=== PATIENT | male | born 1940 | race Caucasian/White ===

== ENCOUNTER 2020-11-05 10:28 | Outpatient (CLI) | END 2020-11-05 10:29 | disposition home or self-care (01) | LOC: LAB.R 10:28 | PROVIDERS: ATTEND Internal Medicine | DX: R19.7 Diarrhea, unspecified (principal); R11.0 Nausea; R10.9 Unspecified abdominal pain; R63.4 Abnormal weight loss | CPT/HCPCS: 81599; 87045; 87046; 87427; 87493 ==

== ENCOUNTER 2023-01-11 19:35 | Emergency (ER) | payer MEDICARE, OTHER ==
[2023-01-11] MEDS ORDERED: ASPIRIN CHEW 81 MG TABLET PO STA (19:59)
--- NOTE | 2023-01-11 20:00 | ED Physician Documentation ---
History of Present Illness - Stated complaint Stated Complaint: ABNORMAL BLOODWORK - Chief complaint Chief Complaint: General - History obtained from History obtained from: Patient - Additonal information Additional information: 82-year-old gentleman with no history of cardiac disease, did have a negative stress test couple of years ago. On and off for the last week he has had intermittent chest pain particularly bad with about several hours of on and off chest pressure last night. He has been pain-free all day but went to his doctor's office today where they performed a troponin test and was reportedly 30 and he was advised to come here. PD PAST MEDICAL HISTORY - Past Medical History Cardiovascular: Hypertension, High cholesterol GI: GERD Derm: Other - Past Surgical History Past Surgical History: Yes General: Other Ortho: Knee replacement, Arthroscopic surgery Derm: Skin cancer surgery - Present Medications Home Medications: Ambulatory Orders Medication Instructions Recorded Confirmed Aspirin 325 mg PO DAILY 07/11/15 08/22/15 Carvedilol 6.25 mg PO DAILY 07/11/15 08/22/15 Esomeprazole [NexIUM] 40 mg PO DAILY 07/11/15 08/22/15 Finasteride [Proscar] 5 mg PO DAILY 07/11/15 08/22/15 Losartan [Cozaar] 100 mg PO DAILY 07/11/15 08/22/15 Simvastatin 40 mg PO DAILY 07/11/15 08/22/15 Terazosin [Hytrin] 10 mg PO BID 07/11/15 08/22/15 clonazePAM [Clonazepam] 1 mg PO ONCE 07/11/15 08/22/15 hydroCHLOROthiazide 25 mg PO DAILY 07/11/15 08/22/15 [Hydrochlorothiazide] HYDROmorphone [Dilaudid] 2 mg PO Q4H PRN #10 tablet 08/22/15 - Allergies Allergies/Adverse Reactions: Allergies Allergy/AdvReac Type Severity Reaction Status Date / Time oxycodone Allergy Rash Verified 01/11/23 19:45 - Social History Does the pt smoke?: No Smoking Status: Never smoker Does the pt drink ETOH?: No Does the pt have substance abuse?: No - Immunizations Immunizations are current?: Yes PD ED PE NORMAL - Vitals Vital signs reviewed: Yes - General General: Alert and oriented X 3, No acute distress - Neck Neck: Supple, no meningeal sign, No bony TTP - Cardiac Cardiac: RRR, No murmur - Respiratory Respiratory: No respiratory distress, Clear bilaterally - Abdomen Abdomen: Non tender - Extremities Extremities: No edema, No calf tenderness / cord - Neuro Neuro: Alert and oriented X 3, Normal speech Results - Vitals Vitals: Vital Signs - 24 hr 01/11/23 01/11/23 19:45 20:38 Temperature 36.5 C Heart Rate 69 62 Respiratory 16 16 Rate Blood Pressure 160/100 H 136/77 H O2 Saturation 94 93 Oxygen O2 Source Room air - EKG (time done) 2004 EKG releavant findings:: EKG personally interpreted by author of this note. Relevant findings are: Rate: Rate (enter#) (66) Rhythm: NSR [place]: LAD Intervals: Prolonged [place] Ischemia: Q waves (Anterior and inferior Q waves). No: ST elevation c/w ischemia Compare to prior EKG: Old EKG unavailable Computer interpretation: Agree with computer - Labs Labs: Laboratory Tests 01/11/23 01/11/23 20:17 20:17 WBC 7.1 RBC 4.50 L Hgb 13.5 L Hct 40.8 L MCV 90.7 MCH 30.0 MCHC 33.1 RDW 12.7 Plt Count 206 MPV 9.2 Neut # (Auto) 4.2 Lymph # (Auto) 1.8 [place] # (Auto) 0.6 Eos # (Auto) 0.4 Baso # (Auto) 0.1 Absolute Nucleated RBC 0.00 Nucleated RBC % 0.0 Sodium 143 Potassium 3.4 L Chloride 107 Carbon Dioxide 29 Anion Gap 7.0 BUN 18 Creatinine 0.8 Estimated GFR (MDRD) 92 Glucose 104 Calcium 9.4 Total Bilirubin 0.5 AST 18 ALT 12 Alkaline Phosphatase 53 Troponin I High Sens 11.7 Total Protein 6.6 Albumin 4.2 Globulin 2.4 Albumin/Globulin Ratio 1.8 Lipase 19 PD Medical Decision Making - ED course ED course: 82-year-old gentleman presents with resolved chest pain. Reportedly had a high troponin earlier in the day but I am not convinced that was actually a troponin, he seemed to have some trouble coming up with the name of the test results. Regardless his troponin is negative now and he has been pain-free for about 24 hours so outpatient appropriate follow-up was appropriate but given close return precautions. Departure - Departure Disposition: 01 Home, Self Care Clinical Impression: Chest pain Condition: Good Record reviewed to determine appropriate education?: Yes Instructions: ED Chest Pain Atypical Unkn Cause Comments: Your troponin level was 11.7 which is well within the normal range. Continue current medications and follow-up with your doctor calling tomorrow. Anticipate they will want to arrange for you to have a stress test. If you have recurrent chest pain please return immediately for reevaluation. Forms: PCP List
[2023-01-11 20:21] LABS: BASOPHILS # (AUTO) 0.1 10^3/uL (0.0-0.1); BASOPHILS % (AUTO) 0.8 %; EOSINOPHILS # (AUTO) 0.4 10^3/uL (0.0-0.7); EOSINOPHILS % (AUTO) 5.2 %; HCT - HEMATOCRIT 40.8 % (42.0-52.0); HGB - HEMOGLOBIN 13.5 g/dL (14.0-18.0); LYMPHOCYTES # (AUTO) 1.8 10^3/uL (1.5-3.5); LYMPHOCYTES % (AUTO) 25.7 %; MEAN CORPUSCULAR HGB CONC 33.1 g/dL (32.0-36.0); MEAN CORPUSCULAR VOLUME 90.7 fL (80.0-94.0); MEAN PLATELET VOLUME 9.2 fL (7.4-11.4); MONOCYTES # (AUTO) 0.6 10^3/uL (0.0-1.0); MONOCYTES % (AUTO) 8.5 %; NEUTROPHILS # (AUTO) 4.2 10^3/uL (1.5-6.6); NEUTROPHILS % (AUTO) 59.7 %; PLT - PLATELET COUNT 206 10^3/uL (130-450); RED CELL DISTRIBUTION WIDTH 12.7 % (12.0-15.0); WHITE BLOOD COUNT 7.1 x10^3/uL (4.8-10.8)
--- NOTE | 2023-01-11 20:37 | XRAY Report ---
PROCEDURE: Chest 1 View X-Ray INDICATIONS: Chest Pain TECHNIQUE: One view of the chest was acquired. COMPARISON: None. FINDINGS: Surgical changes and devices: None. Lungs and pleura: No pleural effusions or pneumothorax. Lungs are clear. Mediastinum: Mediastinal contours appear normal. Heart size is normal. Bones and chest wall: No suspicious bony lesions. Overlying soft tissues appear unremarkable. IMPRESSION: No acute cardiopulmonary process. Reviewed by: Chinedu Krishnan on 01/11/2023 8:35 PM PDT Approved by: Chinedu Krishnan on 01/11/2023 8:35 PM PDT Station ID: [id number]
[2023-01-11 20:41] LABS: ALBUMIN 4.2 g/dL (3.2-5.5); ALBUMIN/GLOBULIN RATIO 1.8 (1.0-2.2); BILIRUBIN,TOTAL 0.5 mg/dL (0.2-1.0); CALCIUM 9.4 mg/dL (8.5-10.3); CREATININE 0.8 mg/dL (0.6-1.3); POTASSIUM 3.4 mmol/L (3.5-4.5); TOTAL PROTEIN 6.6 g/dL (6.4-8.9)
[2023-01-11 20:44] VITALS: BP 136/77; O2SAT 93
[2023-01-11 20:48] LABS: TROPONIN I HIGH SENSITIVITY 11.7 ng/L (2.3-19.7)
== END 2023-01-11 21:33 | disposition home or self-care (01) ==
LOC: ED 19:35
DX: R07.9 Chest pain, unspecified (principal); I10 Essential (primary) hypertension
CPT/HCPCS: 36415; 71045; 80053; 83690; 84484; 85025; 93005; 99283; 99284; A9270

== ENCOUNTER 2023-05-06 10:23 | Outpatient (CLI) | payer MEDICARE ==
[2023-05-06 15:25] LABS: CHOL/HDL RATIO 2.9 (<5.0); CHOLESTEROL 112 mg/dL; HDL CHOLESTEROL 38 mg/dL; LDL CHOLESTEROL,CALCULATED 49 mg/dL; LDL/HDL RATIO 1.3 (<3.6); TRIGLYCERIDES 126 mg/dL (48-352); VLDL CHOLESTEROL 25 mg/dL
== END 2023-05-06 10:24 | disposition home or self-care (01) ==
LOC: LAB.S 10:23
PROVIDERS: ATTEND Internal Medicine
DX: I25.10 Atherosclerotic heart disease of native coronary artery without angina pectoris (principal); E78.5 Hyperlipidemia, unspecified
CPT/HCPCS: 36415; 80061; 83721